=== PATIENT | female | born 1990 ===

== ENCOUNTER 2020-03-26 18:54 | Emergency (ER) | payer BC, MEDICAID ==
--- NOTE | 2020-03-26 19:26 | EDM.PDOC ---
ED HPI GENERAL MEDICAL PROBLEM - General Chief Complaint: General Stated Complaint: EMS ARRIVAL Time Seen by Provider: 03/26/20 18:57 Source of Information: Reports: Patient History Limitations: Reports: No Limitations - History of Present Illness INITIAL COMMENTS - FREE TEXT/NARRATIVE: This patient is a 29-year-old female past medical history of type 1 diabetes mellitus, status post partial pancreatectomy, status post cholecystectomy currently approximately 11 weeks gestation presenting for evaluation of a wound. She presents with complaints of a one-week history of a wound to the posterolateral aspect of her right thigh. She was evaluated in a community medicine clinic in [place] and was sent to our emergency department for further evaluation because there was concerned that the wound was worsening. She is currently taking Augmentin p.o. for a UTI and took a single dose of azithromycin about 3 days ago for STI exposure. She complains of worsening erythema and pain to the site of her wound where she believes that she sustained a spider bite. She denies any fever, chills, nausea, vomiting. right thigh Pain Score (Numeric/FACES): 8 - Related Data Allergies Allergy/AdvReac Type Severity Reaction Status Date / Time cefaclor [From Ceclor] Allergy Hives Verified 03/26/20 19:07 sulfamethoxazole Allergy Hives Verified 03/26/20 19:08 [From Septra] trimethoprim [From Septra] Allergy Hives Verified 03/26/20 19:08 Home Meds: Home Meds Amoxicillin/Clavulanate K [Augmentin 875-125 MG] 1 tab PO 03/26/20 [History] Clindamycin Gel 03/26/20 [History] Clindamycin HCl 300 mg PO QID 14 Days #56 capsule 03/26/20 [Rx] Insulin Detemir [Levemir Flextouch] 100 unit SQ BID 03/26/20 [History] Insuln Asp Prot/Insulin Aspart [NovoLOG Mix 70-30] 0 unit SQ TID 03/26/20 [ History] Pnv No.95/Ferrous Fum/Folic AC [ Caplet] 1 each PO DAILY 03/26/20 [ History] Past Medical History HEENT History: Reports: None Cardiovascular History: Reports: None Respiratory History: Reports: None Gastrointestinal History: Reports: Pancreatitis Other Gastrointestinal History: s/p cholecystectomy and partial pancreatectomy [employer] History: Reports: , Spontaneous Musculoskeletal History: Reports: None Neurological History: Reports: None Psychiatric History: Reports: None Endocrine/Metabolic History: Reports: Diabetes, Type I Hematologic History: Reports: None Immunologic History: Reports: None Oncologic (Cancer) History: Reports: None Dermatologic History: Reports: None - Infectious Disease History Infectious Disease History: Reports: Chicken Pox - Past Surgical History GI Surgical History: Reports: Cholecystectomy Other GI Surgeries/Procedures: pt reports 90% pancreas removed in 2018 Female Surgical History: Reports: Section Social & Family History - Family History Family Medical History: Noncontributory - Tobacco Use Smoking Status *Q: Never Smoker - Recreational Drug Use Recreational Drug Use: No ED ROS GENERAL - Review of Systems Review Of Systems: See Below Constitutional: Denies: Fever, Chills HEENT: Reports: No Symptoms Respiratory: Denies: Shortness of Breath Cardiovascular: Denies: Chest Pain Endocrine: Reports: No Symptoms GI/Abdominal: Denies: Abdominal Pain, Nausea, Vomiting : Reports: No Symptoms Musculoskeletal: Reports: No Symptoms Skin: Reports: Wound Neurological: Reports: No Symptoms Psychiatric: Reports: No Symptoms Hematologic/Lymphatic: Reports: No Symptoms Immunologic: Reports: No Symptoms ED EXAM, GENERAL - Physical Exam Exam: See Below Free Text/Narrative:: Vital signs reviewed. Nursing notes reviewed. Constitutional: Awake, alert, non-distressed. Head: Normocephalic, atraumatic. Eyes: EOMI, conjunctiva normal, no discharge, no scleral icterus. Ears, Nose, Throat: External ears and ears normal, moist oral mucosa. Cardiovascular: 2+ radial pulse, capillary refill less than 2 seconds. Pulmonary: normal work of breathing, no accessory muscle use. Abdomen/GI: Soft, nontender, nondistended, no guarding or rigidity, no masses. Musculoskeletal: No deformities. Integumentary: Appropriate color for ethnicity, warm, dry, no pallor or jaundice , no rash. Approximately 5 cm round wound to the posterolateral aspect of the right thigh, consistent with a draining abscess with some surrounding cellulitis. Neurologic: Alert, answering questions appropriately, normal speech, no facial droop, moving all extremities well. Psychiatric: Appropriate mood and affect, normal thought process. ED GENERAL MEDICAL PROCEDURES - Additional/Other Procedure(s) Other (Free Text) Procedure(s): Procedure: Incision and drainage. Indication: Abscess Location: Right posterolateral thigh Anesthesia: 4 mL of bupivacaine 0.5% Procedure: Abscess area was anesthetized with bupivacaine.. I then manually expressed a small amount of purulent material, no scalpel drainage was performed as the wound is already adequately open. Dressing was applied. Complications: None apparent Performed by: Ben Rodriguez DO Course - Vital Signs Text/Narrative:: Patient hemodynamically stable, afebrile, well-appearing, looks nontoxic. Differential diagnosis includes but is not limited to: Abscess, cellulitis, sepsis, bacteremia, etc. Labs are reassuring. No evidence of sepsis, no leukocytosis, normal lactate. Mild hyperglycemia but not markedly deranged. Performed manual expression of some purulent material from the pre-existing abscess. Patient is stable to discharge home, will modify antibiotic regimen as it is not currently adequate to cover for an abscess with surrounding cellulitis. We will plan to prescribe a two-week course of clindamycin p.o. Recommend [id number] acetaminophen for pain given status. Follow-up with primary medical doctor in 2 to 3 days. Plan: Patient is stable to discharge home with outpatient primary care follow- up. Strict emergency department return precautions were provided, patient indicated understanding. All questions were answered prior to departure. Discharged in good condition. Last Recorded V/S: Last Vital Signs Temp 36.2 C 03/26/20 19:11 Pulse 78 03/26/20 20:22 Resp 14 03/26/20 20:22 BP 129/89 03/26/20 20:22 Pulse Ox 98 03/26/20 20:22 - Orders/Labs/Meds Orders: Active Orders 24 hr Category Date Time Status COMPREHENSIVE METABOLIC PN,CMP [CHEM] Stat Lab 03/26/20 19:34 Results CULTURE WOUND [RM] Stat Lab 03/26/20 19:57 Received Labs: Laboratory Tests 03/26/20 03/26/20 03/26/20 Range/Units 19:34 19:34 19:34 WBC 7.87 (4.0-11.0) K/uL RBC 4.34 (4.30-5.90) M/uL Hgb 11.5 L (12.0-16.0) g/dL Hct 36.1 (36.0-46.0) % MCV 83.2 (80.0-98.0) fL MCH 26.5 L (27.0-32.0) pg MCHC 31.9 (31.0-37.0) g/dL RDW Std Deviation 44.2 (28.0-62.0) fl RDW Coeff of Rc 14 (11.0-15.0) % Plt Count 335 (150-400) K/uL MPV 10.20 (7.40-12.00) fL Neut % (Auto) 77.0 (48.0-80.0) % Lymph % (Auto) 16.9 (16.0-40.0) % [place] % (Auto) 4.7 (0.0-15.0) % Eos % (Auto) 1.0 (0.0-7.0) % Baso % (Auto) 0.4 (0.0-1.5) % Neut # (Auto) 6.1 H (1.4-5.7) K/uL Lymph # (Auto) 1.3 (0.6-2.4) K/uL [place] # (Auto) 0.4 (0.0-0.8) K/uL Eos # (Auto) 0.1 (0.0-0.7) K/uL Baso # (Auto) 0.0 (0.0-0.1) K/uL Nucleated RBC % 0.0 /100WBC Nucleated RBCs # 0 K/uL Lactate 1.9 (0.20-2.00) mmol/L Sodium 134 L (136-145) mmol/L Potassium 3.9 (3.5-5.1) mmol/L Chloride 102 (98-107) mmol/L Carbon Dioxide 21.7 (21.0-32.0) mmol/L BUN 7 (7.0-18.0) mg/dL Creatinine 0.6 (0.6-1.0) mg/dL Est Cr Clr Drug Dosing 133.32 mL/min Estimated GFR (MDRD) > 60.0 ml/min Glucose 234 H (74-106) mg/dL Calcium 8.4 L (8.5-10.1) mg/dL AST 16 (15-37) IU/L ALT 21 (14-63) IU/L Alkaline Phosphatase 111 (46-116) U/L Total Protein 6.1 L (6.4-8.2) g/dL Albumin 2.3 L (3.4-5.0) g/dL Globulin 3.8 (2.6-4.0) g/dL Albumin/Globulin Ratio 0.6 L (0.9-1.6) Meds: Medications Discontinued Medications Generic Name Dose Route Start Last Admin Trade Name Obed PRN Reason Stop Dose Admin Acetaminophen 1,000 mg 03/26/20 20:16 03/26/20 20:25 Tylenol Extra Strength PO 03/26/20 20:17 1,000 mg ONETIME ONE Administration Bupivacaine HCl 10 ml 03/26/20 19:51 03/26/20 20:25 Sensorcaine-Mpf 0.5% INJECT 03/26/20 19:52 10 ml ONETIME ONE Administration Bupivacaine HCl Confirm 03/26/20 19:52 03/26/20 20:26 Sensorcaine-Mpf 0.5% Administered 03/26/20 19:53 Not Given Dose 10 ml .ROUTE .STK-MED ONE Departure - Departure Time of Disposition: 20:23 Disposition: Home, Self-Care 01 Condition: Good Clinical Impression: Abscess of right thigh - Discharge Information *PRESCRIPTION DRUG MONITORING PROGRAM REVIEWED*: Not Applicable *COPY OF PRESCRIPTION DRUG MONITORING REPORT IN PATIENT CORRY: Not Applicable Prescriptions: Clindamycin HCl 300 mg PO QID 14 Days #56 capsule Instructions: Skin Abscess Referrals: [facility] - [facility] Practice [Provider Group] - 3 Days (Follow-up of abscess.) Forms: ED Department Discharge Additional Instructions: Thank you for choosing the [facility] emergency department in [place] for your medical needs today. It was a pleasure caring for you. You were seen in the emergency department for a thigh abscess with cellulitis. Be sure to take all of your prescribed antibiotics, even if you are feeling better. You can take [id number] acetaminophen for pain. I strongly recommend you follow-up with a primary medical clinic in the next 2 to 3 days to have your wound reevaluated. Please return the emergency department immediately if your symptoms worsen or if you feel worse. The following information is given to patients seen in the emergency department who are being discharged. This information is to outline your options for follow -up care. We provide all patients seen in our emergency department with a follow -up referral. The need for follow-up, as well as the timing and circumstances, are variable depending upon the specifics of your emergency department visit. If you don't have a primary care physician on staff, we will provide you with a referral. We always advise you to contact your personal physician following an emergency department visit to inform them of the circumstance of the visit and for follow-up with them and/or the need for any referrals to a consulting specialist. The emergency department will also refer you to a specialist when appropriate. This referral assures that you have the opportunity for follow-up care with a specialist. All of these measure are taken in an effort to provide you with optimal care, which includes your follow-up. Under all circumstances we always encourage you to contact your private physician who remains a resource for coordinating your care. When calling for follow-up care, please make the office aware that this follow-up is from your recent emergency room visit. If for any reason you are refused follow-up, please contact the [facility] Emergency Department at and asked to speak to the emergency department charge nurse. If you do not have a primary care physician that is caring for you, you can contact these clinics below to set up an appointment to establish care: [facility] - Primary Care [address] [place] [id number] [address] Sepsis Event Note - Evaluation Sepsis Screening Result: No Definite Risk - Focused Exam Vital Signs: Vital Signs Temp Pulse Resp BP Pulse Ox 03/26/20 20:22 78 14 129/89 98 03/26/20 19:11 36.2 C 96 18 126/73 97 Date Exam was Performed: 03/26/20 Time Exam was Performed: 20:33 - My Orders Last 24 Hours: My Active Orders 03/26/20 19:34 COMPREHENSIVE METABOLIC PN,CMP [CHEM] Stat 03/26/20 19:57 CULTURE WOUND [RM] Stat - Assessment/Plan Last 24 Hours: My Active Orders 03/26/20 19:34 COMPREHENSIVE METABOLIC PN,CMP [CHEM] Stat 03/26/20 19:57 CULTURE WOUND [RM] Stat
[2020-03-26] MEDS ORDERED: Bupivacaine 0.5% 10 ML SDV INJECT ONE (19:51)
[2020-03-26] MEDS ORDERED: Bupivacaine 0.5% 10 ML SDV ONE (19:52)
[2020-03-26 20:13] LABS: BLOOD UREA NITROGEN,BUN 7 mg/dL (7.0-18.0); CARBON DIOXIDE,CO2 21.7 mmol/L (21.0-32.0); CHLORIDE,CL 102 mmol/L (98-107); GLUCOSE RANDOM 234 mg/dL (74-106); POTASSIUM,K 3.9 mmol/L (3.5-5.1); SODIUM,NA 134 mmol/L (136-145)
[2020-03-26] MEDS ORDERED: Acetaminophen 500 MG Tab PO ONE (20:16)
== END 2020-03-26 20:40 | disposition home or self-care (01) ==
LOC: EEVIPCON 18:54 → MW.ED 18:54
DX: O99.711 Diseases of the skin and subcutaneous tissue complicating pregnancy, first trimester (principal); L02.415 Cutaneous abscess of right lower limb; O24.011 Pre-existing type 1 diabetes mellitus, in pregnancy, first trimester; E10.9 Type 1 diabetes mellitus without complications; Z3A.11 11 weeks gestation of pregnancy
CPT/HCPCS: 36415; 64450; 80053; 83605; 85025; 87070; 87077; 87186; 99284; A9270; J3490; 99283